=== PATIENT | female | born 1960 | race Caucasian/White ===

== ENCOUNTER 2016-12-03 19:57 | Inpatient (IN) | payer OTHER ==
--- NOTE | ~2016-12-03 | HP ---
History And Physical [facility] [address] [facility] [place]. [address] NAME: JOSE GUSMAN : 60 STATUS : ADM IN [facility]#: [id number] AGE: 56 ADM/REG DATE : 12/03/16 MR#: [id number] REPORT SERV DATE: 12/04/16 DICTATED BY: PAMELA ZIEGLER DATE: 12/03/16 REPORT STATUS : Draft TRANSCRIBED BY: MODZully DATE: 12/03/16 DATE OF ADMISSION: 12/03/2016 IDENTIFYING DATA: The patient is a 56-year-old woman with a history of Crohn disease and no significant previous cardiovascular history. CHIEF COMPLAINT: Substernal pressure-type pain with radiation to the neck for three days and with abrupt worsening at approximately 1400 hours yesterday. HISTORY OF PRESENT ILLNESS: Ms. Gusman is a 56-year-old woman with no previous cardiovascular history. She was in her usual state of health until approximately three days ago. The patient reports that she began to notice a substernal pressure-type chest pain. This was worsened with exertion, but would typically go away shortly after the patient sat down to rest. She did not seek immediate medical attention for this. The patient had the abrupt onset of the chest pain yesterday at 2 p.m. She reports that she had a severe substernal tightness with radiation to her neck. This was associated with shortness of breath. Again, the patient apparently did not seek immediate medical attention, but rather waited until late this evening to present. The patient reports she presented due to the unremitting nature of her symptoms. At this time, the patient continues to complain of a grade 3/10 tightness in her neck and shoulders. She is otherwise without specific complaints at this time. PAST MEDICAL HISTORY: Crohn disease. The patient denies any other significant past medical history. PAST SURGICAL HISTORY: The patient reports that she has had multiple previous abdominal surgeries for partial colectomies. She has had bilateral total hip replacements. She has had a meningioma removed from her foot. Surgical history is otherwise noncontributory. FAMILY HISTORY: The patient reports that her father of complications related to coronary artery bypass grafting surgery. There is no other significant family history of coronary heart disease or sudden cardiac . SOCIAL HISTORY: The patient denies tobacco, alcohol, or drug use. ALLERGIES: THE PATIENT HAS MULTIPLE DOCUMENTED ALLERGIES INCLUDING NSAIDS, PENICILLIN, SULFA, NEOMYCIN, BACITRACIN, POLYMYXIN B, AND REMICADE. HOME MEDICATIONS: 1. Acetaminophen 500 mg p.o. daily. 2. Diclofenac topical gel 1% daily as needed. 3. Nexium 40 mg p.o. daily. 4. Metronidazole 500 mg p.o. q.6 hours x7 days. 5. Multivitamin one tablet daily. 6. Ultram 50 to 100 mg daily as needed for back pain. 7. Neurontin - unknown dose. History And Physical [address] [address] NAME: JOSE GUSMAN : 60 STATUS : ADM IN PAT#: [id number] AGE: 56 ADM/REG DATE : 12/03/16 MR#: [id number] REPORT SERV DATE: 12/04/16 DICTATED BY: PAMELA ZIEGLER DATE: 12/03/16 REPORT STATUS : Draft TRANSCRIBED BY: BLAIR DATE: 12/03/16 8. Biofreeze gel - dose unknown. 9. Entyvio 300 mg injections one IV every [address] Smith. REVIEW OF SYSTEMS: An abbreviated review of systems was performed. This is noncontributory except for the pertinent positives and negatives noted in the history of present illness above. PHYSICAL EXAMINATION: VITAL SIGNS: Temperature is 98.2 degrees Fahrenheit, blood pressure is 98/53 mmHg, respirations 16, oxygen saturation is 98% on 2 L nasal cannula, heart rate is 82 beats per minute and regular. CONSTITUTIONAL: The patient is a chronically ill-appearing white woman, who is currently in no acute distress. EYES: PERRL, EOMI, clear conjunctiva. HEAD/MNT: NCAT with moist mucous membranes and grossly normal hard and soft palate. NECK: Supple with no obvious thyromegaly or lymphadenopathy. CARDIOVASCULAR: There is a regular rhythm with a normal S1 and a physiologically split second heart sound. No significant murmurs, rubs, or gallops are noted. The patient does have elevated jugular venous pressure which is estimated at 10 cm of water. PULMONARY: Clear to auscultation bilaterally, no wheezing, rales or rhonchi noted. No dullness to percussion. Nonlabored. ABDOMINAL: Soft, nontender, nondistended with multiple abdominal scars noted. No gross organomegaly is noted. EXTREMITIES: No clubbing, cyanosis or edema. MUSCULOSKELETAL: Grossly normal strength and range of motion in all extremities. INTEGUMENTARY: Skin appears intact with no bruises, wounds or active lesions noted. NEURO/PSYC: Alert and oriented x3, with no dysarthria, facial droop or lateralizing weakness noted. 12-LEAD EKG: The patient's 12-lead EKG shows normal sinus rhythm with Q-waves noted in II, III, and aVL. There is [address]-segment elevation noted in III and aVF with reciprocal changes noted in I and aVL. The changes do meet criteria for acute myocardial infarction, though the presence of Q-waves would indicate an evolving AK. LABORATORY DATA: Cell count show a white blood cell count of 9.6, hemoglobin 9.2, hematocrit 30, platelets 302. INR is 1.2. PTT is 29. Metabolic profile shows a sodium of 141, potassium 3.7, chloride is 107, CO2 of 27, BUN 8, creatinine is 0.84, glucose 101, calcium is 8.4, albumin is 2.9. AST is elevated at 128 with otherwise unremarkable liver function studies. Troponin I is elevated at 25.9. B-type natriuretic peptide is elevated at 329. Chest x-ray: Pending. ASSESSMENT AND PLAN: 1. Evolving inferior myocardial infarction: The patient is a late presentation. Her symptoms have been present for more than 24 hours at this time. However, given the ongoing complaints of chest pain and neck pain, I feel it is reasonable to proceed with emergent coronary angiography and PCI as indicated. Risks and benefits have been History And Physical [address] [place]. [address] NAME: JOSE GUSMAN : 60 STATUS : ADM IN PAT#: [id number] AGE: 56 ADM/REG DATE : 12/03/16 MR#: [id number] REPORT SERV DATE: 12/04/16 DICTATED BY: PAMELA ZIEGLER DATE: 12/03/16 REPORT STATUS : Draft TRANSCRIBED BY: MODZully DATE: 12/03/16 discussed with the patient. The patient has been started on aspirin and given a heparin bolus. We will start carvedilol if tolerated. We will start high-potency statin therapy. We will consider addition of an CARRINGTON inhibitor depending on the patient's left ventricular systolic function. The patient does have clinical evidence of heart failure including elevated B-type natriuretic peptide and elevated jugular venous pressure. This may indicate an RV involvement however. 2. Crohn disease: The patient will continue her home medication regimen at this time. We will consider a Gastroenterology consultation. PAPO/BLAIR Pamela Ziegler MD / [id number] CC: MD Alexander Alexandra M.D.
--- NOTE | ~2016-12-03 | DS ---
Discharge Summary [facility] [address] [place]. [address] NAME: JOSE ALMANZA : 60 STATUS : DIS IN PAT#: [id number] AGE: 56 ADM/REG DATE : 12/03/16 MR#: [id number] REPORT SERV DATE: 12/17/16 DICTATED BY: PAMELA ZIEGLER DATE: 12/16/16 REPORT STATUS : Draft TRANSCRIBED BY: BLAIR DATE: 12/16/16 Data Collection from hospitalization DISCHARGE DIAGNOSES: 1. Inferior ST-elevation myocardial infarction. 2. Coronary artery disease. 3. Crohn's disease. 4. Anemia. 5. Mitral regurgitation. 6. Neuropathy. 7. Rheumatoid arthritis. 8. Gastroesophageal reflux disease. CONSULTATIONS: Patricia Jennings NP PROCEDURES PERFORMED: Cardiac catheterization and percutaneous coronary intervention on 12/03/2016. MEDICATIONS: Tylenol 500 mg daily as needed, aspirin 81 mg daily, Lipitor 40 mg at bedtime, Coreg 3.125 mg twice a day, Voltaren 2-4 g topically daily as needed, Nexium 40 mg daily at 5:00 p.m., multivitamin one tablet daily, NitroQuick 0.4 mg sublingually as needed, Brilinta 90 mg twice a day, Ultram 50-100 mg daily at 5:00 p.m., Neurontin one tablet once daily, Biofreeze gel one application topically daily as needed, Entyvio one dose IV every 28 days as instructed. CONDITION AT DISCHARGE: Stable. DISPOSITION: The patient was discharged home with diet and activities as instructed. She would follow up with me one month following discharge. HOSPITAL COURSE: This is a 56-year-old female who has no previous cardiovascular history. She had been in her usual state of health until approximately three days prior to admission when she began to develop substernal pressure-type chest pain. This worsened with exertion, but would typically go away shortly after she sat down to rest. She did not seek immediate medical attention for this. She developed abrupt onset of chest pain on the day prior to this admission. She reported that she had severe substernal tightness with radiation to her neck. This was associated with shortness of breath. She again apparently did not seek immediate medical attention, but rather waited until late that evening to present. At the time of her presentation, she continued to complain of 3/10 tightness in her neck and shoulders. Her EKG was reviewed and she was found to have an evolving inferior myocardial infarction. She was admitted to the hospital at this time for further evaluation and treatment. Upon admission, it was felt that she would need to undergo emergent coronary angiography and percutaneous coronary intervention. She was taken to the cardiac labor mediator where she underwent the above-mentioned procedure. She tolerated this well, and there were no complications. The following day, an echocardiogram was performed. She had no further complaints of chest pain or shortness of breath. She did complain of diarrhea. She had Discharge Summary [facility] [address] [place]. [address] NAME: JOSE ALMANZA : 60 STATUS : DIS IN PAT#: [id number] AGE: 56 ADM/REG DATE : 12/03/16 MR#: [id number] REPORT SERV DATE: 12/17/16 DICTATED BY: PAMELA ZIEGLER DATE: 12/16/16 REPORT STATUS : Draft TRANSCRIBED BY: BLAIR DATE: 12/16/16 been started on metronidazole. Telemetry revealed normal sinus rhythm. Her echocardiogram had shown an ejection fraction of 45%-50%. Aspirin, Brilinta, Coreg, and atorvastatin were continued. Her metronidazole was stopped. She was transferred to the floor. She was seen by Patricia Jennings regarding diarrhea with her history of Crohn's disease. The patient does receive IV treatment by her title vehicle service attendant for Crohn's disease. Stool was sent for C. difficile. She was placed on a low-residue diet. On 12/05/2016, she remained on Flagyl for her toothache. She did have some loose stools. Stool was negative for C. difficile. Discharge planning was performed. DVT prophylaxis was started. On 12/06/2016, she was alert and cooperative. Imodium was continued. She said she was feeling better and had no further chest pain or shortness of breath. She was ambulatory. Discharge instructions were given. Due to her improved and stable condition, she was discharged home with the above- stated instructions. Information collected by: Kathie Lewis I submit the above information as my discharge summary. RICHARD/BLAIR Pamela Ziegler MD / [id number] CC: MD Alexander Alexandra M.D.
--- NOTE | ~2016-12-03 | CN ---
Consultation Report [facility] [address] [place]. [address] NAME: JOSE ALMANZA : 60 STATUS : ADM IN PAT#: [id number] AGE: 56 ADM/REG DATE : 12/03/16 MR#: [id number] REPORT SERV DATE: 12/05/16 DICTATED BY: PATRICIA JENNINGS DATE: 12/05/16 REPORT STATUS : Draft TRANSCRIBED BY: MODL DATE: 12/05/16 CONSULT NOTE DATE OF CONSULTATION: 12/04/2016 REASON FOR CONSULTATION: Diarrhea with history of Crohn's disease. HISTORY OF PRESENT ILLNESS: This is an awake, alert, and oriented pleasant 56-year-old female who was admitted on 12/03/[address] Ziegler for an IN with persistent chest and jaw pain. She underwent a cardiac cath on 12/03/2016 and is currently postop day #1. We have been asked to follow her for a complaint of diarrhea after every meal in the setting of a history of Crohn's disease. The patient reports that she originally reported to the dentist with a toothache and was placed on Flagyl. It was then confirmed that the toothache was actually an IN, and the Flagyl was continued during the patient's course of hospitalization here. Dr. Ziegler has now discontinued the Flagyl and asked the hospitalist to follow. The patient denies all other symptoms at this time including chest pain, palpitations, dyspnea, edema, bloody stools, headache, dizziness, and syncope. PAST MEDICAL HISTORY: Significant for: 1. Recent IN. 2. Crohn's disease. 3. Neuropathy. 4. Rheumatoid arthritis. 5. GERD. PAST SURGICAL HISTORY: Significant for: 1. Cardiac cath, 12/03/2016. 2. Right hip replacement, 2000 and 2011. 3. D and C, 03/2010. 4. Colon resection with appendectomy for Crohn's, most recent resection, 1999. 5. Tubal ligation in . 6. Left foot surgery with neuroma removed, 2011. 7. Colonoscopy, 06/2013. The patient's PCP is Dr. Alexander Bird. The patient follows with Dr. aGston, Gastroenterology. SOCIAL HISTORY: The patient denies tobacco, alcohol, and illicit drug use. FAMILY HISTORY: The patient's father of complications related to "heart problems and stroke." Mom is still alive with a history of hypertension. ALLERGIES: 1. NSAIDS. Consultation Report [address] [place]. [address] NAME: JOSE ALMANZA : 60 STATUS : ADM IN PAT#: [id number] AGE: 56 ADM/REG DATE : 12/03/16 MR#: [id number] REPORT SERV DATE: 12/05/16 DICTATED BY: PATRICIA JENNINGS DATE: 12/05/16 REPORT STATUS : Draft TRANSCRIBED BY: BLAIR DATE: 12/05/16 2. PENICILLIN. 3. SULFA. 4. NEOMYCIN. 5. BACITRACIN. 6. POLYMYXIN B. 7. REMICADE. HOME MEDICATIONS: Include: 1. Tylenol 500 mg p.o. daily p.r.n. 2. Voltaren 1% gel 2 to 4 g topically daily p.r.n. to affected areas. 3. Nexium 40 mg p.o. daily. 4. Multivitamin one tablet p.o. daily. 5. Ultram 50 mg one to two tablets tabs p.o. daily at 5 p.m. 6. Neurontin unknown strength one tablet p.o. daily at 5 p.m. Of note, pharmacy was unable to verify a prescription for this medication. 7. Biofreeze gel OTC one application topically p.r.n. to affected areas. 8. Entyvio 300 mg one dose IV every 28 days, administered by Dr. Gaston. REVIEW OF SYSTEMS: A complete 10-point review of systems was negative except as per HPI. PHYSICAL EXAMINATION: VITAL SIGNS: T 97.4, P 90, RR 18, BP 97/54, and SpO2 of 97% on room air. GENERAL: A well-appearing female in no acute distress. NEUROLOGIC: Awake, alert, and oriented x3 without focal deficit. HEENT: Normocephalic and atraumatic without lymphadenopathy. NECK: Supple. No JVD. LUNGS: CTA in all lung dawkins with normal respiratory effort. CV: Regular rate and rhythm. S1, S2 auscultated without murmur, rub, gallop, or click. ABDOMEN: Soft, round, and nontender. Bowel sounds active in all quadrants. No masses. EXTREMITIES: No cyanosis or edema. Cap refill within normal limits. PSYCHIATRIC: Normal affect. SKIN: Clean, dry, and intact with mucous membranes pink and moist. PERTINENT LABORATORY DATA: WBC of 6.3. Hemoglobin and hematocrit 8.3 and 26.0. BUN and creatinine 7 and 0.70. ASSESSMENT AND PLAN: 1. Diarrhea. This patient has a reported history of Crohn's disease and receives IV treatment per her physiological chemist for this. She was on Flagyl at home which was continued upon admission here and has now been discontinued. Our plan will be to stop the Flagyl. We will send the stool for C. diff, change to a low residue diet, and offer supportive care to include antidiarrheal medication. We will monitor her labs and adjust treatment as indicated. 2. Post cardiac cath for IN. Cardiac cath was completed on 12/03/2016. We will defer the Consultation Report [address] [place]. [address] NAME: JOSE ALMANZA : 60 STATUS : ADM IN [facility]#: [id number] AGE: 56 ADM/REG DATE : 12/03/16 MR#: [id number] REPORT SERV DATE: 12/05/16 DICTATED BY: PATRICIA JENNINGS DATE: 12/05/16 REPORT STATUS : Draft TRANSCRIBED BY: MODZully DATE: 12/05/16 management of this to the primary team. Thank you for this consult. We are pleased to follow this patient with you. This consult was completed through thorough review of [employer], old records, [employer], current chart, as well as thorough interview with the patient. [facility]/BLAIR Patricia Jennings NP / [id number] CC: Ben Ziegler MD
[~2016-12-03 19:57] MED LIST: ALKA SELZER PO; B121000P IM; BENTYL10 PO; CIMZIA SC; CIP5 PO; DEPO-PROVER150 MG/ML IM; ENDOCET1 TAB PO; ENTYVIO IV; FLORASTOR250 MG PO; FOLIC PO; HUMIRA PEN SC; LEVSIN; LEVSINTAB PO; LORTAB 5 PO; METHOTREXATE25 MG/ML SQ; MULTIVIT/MIN PO; NEUR100 PO; NEUR600 PO; NEURONTIN PO; NEXIUM40 PO; P10 PO; PEP20 PO; TUMSROLL PO; ULTRAM50 PO; VANCOCIN HCL125 MG PO/LIQ; VITAMIN D PO; VITAMIN D1000 UNI1 PO; X5 PO; ZOFRAN PO; ZOFRAN4 PO; [UNRECOGNIZED DRUG - OTHER]; [UNRECOGNIZED DRUG - OTHER] IV; [UNRECOGNIZED DRUG - OTHER] PO
[2016-12-03 22:02] LABS: BASOPHILS 0.1 %; BASOPHILS ABSOLUTE 0.01 10/3/uL (0.0-0.16); EOSINOPHILS 0 %; IMMATURE GRANULOCYTES 0.3 %; IMMATURE GRANULOCYTES ABSOLUTE 0.03 10/3/uL (0.0-0.11); LYMPHOCYTES ABSOLUTE 1.54 10/3/uL (0.67-4.30); MEAN CORPUSCULAR HEMOGLOB 26.5 pg (26.0-34.0); MEAN CORPUSCULAR VOLUME 85.3 fL (80-100); MEAN PLATELET VOLUME 9.3 fL (9.2-13.0); MONOCYTES 9.5 %; MONOCYTES ABSOLUTE 0.92 10/3/uL (0.21-1.20); NEUTROPHILS 74.1 %; NEUTROPHILS ABSOLUTE 7.14 10/3/uL (2.02-8.40); PLATELET COUNT 302 10/3/uL (150-400); RBC DISTRIBUTION WIDTH 14.8 % (12.0-16.0)
[2016-12-03 22:04] LABS: ER CBC TAT 0 Hrs 11 Mins; HEMATOCRIT 29.6 % (36.0-48.0); HEMOGLOBIN 9.2 g/dL (12.0-16.0); MANUAL DIFF NO %; MEAN CORPUS HGB CONC 31.1 g/dL (32.0-36.0); RED CELL COUNT 3.47 10/6/uL (4.0-5.6); WHITE BLOOD CELLS 9.6 10/3/uL (4.5-10.5)
[2016-12-03 22:09] LABS: INTERNATIONAL NORMAL RATI 1.2 UNITS (-); PARTIAL THROMBO TIME 29.2 SEC (22.5-37.2); PROTIME (NOT ORD) 15.1 SEC (12.0-14.5)
[2016-12-03 22:17] LABS: A/G RATIO 0.7 (0.7-1.9); ALBUMIN 2.9 G/DL (3.5-5.0); ALKALINE PHOSPHATASE 71 U/L (45-117); CALCIUM, SERUM 8.4 MG/DL (8.5-10.4); CHLORIDE, SERUM 107 MMOL/L (96-112); CREATININE 0.84 MG/DL (0.55-1.02); GFR AFRICAN AMERICAN 90 ML/MIN (>=60); GFR NON AFRICAN AMERICAN 78 ML/MIN (>=60); GLOBULIN 4.3 G/DL (2.5-4.1); GLUCOSE, SERUM 101 MG/DL (60-99); POTASSIUM, SERUM 3.7 MMOL/L (3.5-5.3); SGOT(AST) 128 U/L (5-40); SGPT(ALT) 32 U/L (5-65); SODIUM, SERUM 141 MMOL/L (135-148); TOTAL BILIRUBIN 0.7 MG/DL (0-1.2); TOTAL PROTEIN 7.2 G/DL (6.0-8.5)
[2016-12-03 22:18] LABS: BUN (BLOOD UREA NITROGEN) 8 MG/DL (6-23); CO2 (CARBON DIOXIDE) 27 MMOL/L (24-34)
[2016-12-03 22:19] LABS: CALCIUM, SERUM 8.6 MG/DL (8.5-10.4); CHEST PAIN PROFILE TAT 0 Hrs 26 Mins; CHLORIDE, SERUM 108 MMOL/L (96-112); CREATININE 0.86 MG/DL (0.55-1.02); GFR AFRICAN AMERICAN 88 ML/MIN (>=60); GFR NON AFRICAN AMERICAN 76 ML/MIN (>=60); GLUCOSE, SERUM 102 MG/DL (60-99); POTASSIUM, SERUM 3.7 MMOL/L (3.5-5.3); SODIUM, SERUM 142 MMOL/L (135-148)
[2016-12-03] MEDS ORDERED: ENTYVIO300 MG IV (22:20)
[2016-12-03] MEDS ORDERED: NEUR600 PO (22:21)
[2016-12-03] MEDS ORDERED: ULTRAM50 PO (22:22)
[2016-12-03] MEDS ORDERED: NEXIUM40 PO (22:22)
[2016-12-03] MEDS ORDERED: FLAG500TAB PO (22:23)
[2016-12-03] MEDS ORDERED: MULTIVIT/MIN PO (22:23)
[2016-12-03] MEDS ORDERED: VOLTAREN1 % TOP (22:24)
[2016-12-03] MEDS ORDERED: BIOFREEZE TOP (22:24)
[2016-12-03 22:25] LABS: BUN (BLOOD UREA NITROGEN) 8 MG/DL (6-23); CO2 (CARBON DIOXIDE) 27 MMOL/L (24-34)
[2016-12-03] MEDS ORDERED: ACET500CAP PO (22:25)
[2016-12-04 02:03] LABS: CK-MB 27.5 NG/ML
[2016-12-04 02:15] LABS: CPK 598 U/L (0-200)
[2016-12-04 02:17] LABS: CKMB INDEX (NOT ORD) 4.6
[2016-12-04 06:05] LABS: BASOPHILS 0 %; EOSINOPHILS 0 %; HEMOGLOBIN 8.3 g/dL (12.0-16.0); IMMATURE GRANULOCYTES 0.2 %; IMMATURE GRANULOCYTES ABSOLUTE 0.01 10/3/uL (0.0-0.11); LYMPHOCYTES ABSOLUTE 1.33 10/3/uL (0.67-4.30); MEAN CORPUS HGB CONC 31.9 g/dL (32.0-36.0); MEAN CORPUSCULAR HEMOGLOB 27.2 pg (26.0-34.0); MEAN CORPUSCULAR VOLUME 85.2 fL (80-100); MEAN PLATELET VOLUME 9.1 fL (9.2-13.0); MONOCYTES 9.7 %; MONOCYTES ABSOLUTE 0.61 10/3/uL (0.21-1.20); NEUTROPHILS 69.1 %; NEUTROPHILS ABSOLUTE 4.37 10/3/uL (2.02-8.40); PLATELET COUNT 235 10/3/uL (150-400); RBC DISTRIBUTION WIDTH 14.8 % (12.0-16.0); RED CELL COUNT 3.05 10/6/uL (4.0-5.6); WHITE BLOOD CELLS 6.3 10/3/uL (4.5-10.5)
[2016-12-04 06:06] LABS: MANUAL DIFF NO %
[2016-12-04 06:21] LABS: BUN (BLOOD UREA NITROGEN) 7 MG/DL (6-23); CALCIUM, SERUM 7.7 MG/DL (8.5-10.4); CHLORIDE, SERUM 111 MMOL/L (96-112); CHOL/HDL RATIO(NOT ORDER) 2.9 (0-5); CHOLESTEROL 95 MG/DL (< 200); CO2 (CARBON DIOXIDE) 25 MMOL/L (24-34); GFR AFRICAN AMERICAN 112 ML/MIN (>=60); GFR NON AFRICAN AMERICAN 97 ML/MIN (>=60); GLUCOSE, SERUM 92 MG/DL (60-99); HDL CHOLESTEROL 33 MG/DL (> 49); LDL CHOLESTEROL 35 MG/DL (< 130); NON-HDL CHOLESTEROL 62 MG/DL (< 160); POTASSIUM, SERUM 3.4 MMOL/L (3.5-5.3); SODIUM, SERUM 144 MMOL/L (135-148); TRIGLYCERIDE 137 MG/DL (< 150)
[2016-12-04 13:40] LABS: CK-MB 16.8 NG/ML
[2016-12-04 13:43] LABS: CKMB INDEX (NOT ORD) 3.9; TROPONIN I 26.3 NG/ML (<0.05)
[2016-12-04 23:54] LABS: CK-MB 7.7 NG/ML
[2016-12-04 23:55] LABS: CKMB INDEX (NOT ORD) 3.2
[2016-12-05 04:35] LABS: BASOPHILS 0.3 %; BASOPHILS ABSOLUTE 0.02 10/3/uL (0.0-0.16); EOSINOPHILS 0.7 %; EOSINOPHILS ABSOLUTE 0.04 10/3/uL (0.0-0.53); HEMATOCRIT 26.7 % (36.0-48.0); HEMOGLOBIN 8.7 g/dL (12.0-16.0); IMMATURE GRANULOCYTES 0.5 %; IMMATURE GRANULOCYTES ABSOLUTE 0.03 10/3/uL (0.0-0.11); LYMPHOCYTES 29.6 %; LYMPHOCYTES ABSOLUTE 1.76 10/3/uL (0.67-4.30); MEAN CORPUS HGB CONC 32.6 g/dL (32.0-36.0); MEAN CORPUSCULAR HEMOGLOB 27.4 pg (26.0-34.0); MEAN CORPUSCULAR VOLUME 84.2 fL (80-100); MEAN PLATELET VOLUME 9.1 fL (9.2-13.0); MONOCYTES 8.1 %; MONOCYTES ABSOLUTE 0.48 10/3/uL (0.21-1.20); NEUTROPHILS 60.8 %; NEUTROPHILS ABSOLUTE 3.61 10/3/uL (2.02-8.40); PLATELET COUNT 282 10/3/uL (150-400); RBC DISTRIBUTION WIDTH 14.9 % (12.0-16.0); RED CELL COUNT 3.17 10/6/uL (4.0-5.6); WHITE BLOOD CELLS 5.9 10/3/uL (4.5-10.5)
[2016-12-05 04:42] LABS: BUN (BLOOD UREA NITROGEN) 12 MG/DL (6-23); CALCIUM, SERUM 7.9 MG/DL (8.5-10.4); CHLORIDE, SERUM 112 MMOL/L (96-112); CO2 (CARBON DIOXIDE) 24 MMOL/L (24-34); CREATININE 0.82 MG/DL (0.55-1.02); GFR AFRICAN AMERICAN 93 ML/MIN (>=60); GFR NON AFRICAN AMERICAN 80 ML/MIN (>=60); GLUCOSE, SERUM 96 MG/DL (60-99); POTASSIUM, SERUM 3.6 MMOL/L (3.5-5.3); SODIUM, SERUM 142 MMOL/L (135-148)
[2016-12-05 04:43] LABS: MANUAL DIFF NO %
[2016-12-05 13:42] LABS: CK-MB 4.2 NG/ML; CPK 161 U/L (0-200)
[2016-12-05 19:28] LABS: CK-MB 3.2 NG/ML; CPK 161 U/L (0-200)
[2016-12-06 05:39] LABS: BASOPHILS 0.2 %; BASOPHILS ABSOLUTE 0.01 10/3/uL (0.0-0.16); EOSINOPHILS 1.3 %; EOSINOPHILS ABSOLUTE 0.07 10/3/uL (0.0-0.53); HEMOGLOBIN 9.4 g/dL (12.0-16.0); IMMATURE GRANULOCYTES 0.6 %; IMMATURE GRANULOCYTES ABSOLUTE 0.03 10/3/uL (0.0-0.11); LYMPHOCYTES 22.4 %; LYMPHOCYTES ABSOLUTE 1.19 10/3/uL (0.67-4.30); MEAN CORPUS HGB CONC 31.2 g/dL (32.0-36.0); MEAN CORPUSCULAR HEMOGLOB 26.5 pg (26.0-34.0); MEAN CORPUSCULAR VOLUME 84.8 fL (80-100); MEAN PLATELET VOLUME 8.9 fL (9.2-13.0); MONOCYTES ABSOLUTE 0.48 10/3/uL (0.21-1.20); NEUTROPHILS 66.5 %; NEUTROPHILS ABSOLUTE 3.54 10/3/uL (2.02-8.40); PLATELET COUNT 304 10/3/uL (150-400); RBC DISTRIBUTION WIDTH 14.8 % (12.0-16.0); RED CELL COUNT 3.55 10/6/uL (4.0-5.6); WHITE BLOOD CELLS 5.3 10/3/uL (4.5-10.5)
[2016-12-06 05:41] LABS: HEMATOCRIT 30.1 % (36.0-48.0); MANUAL DIFF NO %
[2016-12-06] MEDS ORDERED: ASAB PO (11:36)
[2016-12-06] MEDS ORDERED: LIPITOR40 PO (11:36)
[2016-12-06] MEDS ORDERED: COREG3 PO (11:37)
[2016-12-06] MEDS ORDERED: BRILINTA90 MG PO (11:39)
[2016-12-06] MEDS ORDERED: NITROQUICK0.4 MG SL (11:42)
== END 2016-12-06 14:02 | disposition home or self-care (01) | DRG 247 ==
LOC: ER 19:57 → SSU2 22:50 → CCU 12-04 01:09 → 5NO 12-04 18:37
PROVIDERS: Emergency Medicine; Internal Medicine Cardiovascular Disease
PROC: 027034Z Dilation of Coronary Artery, One Artery with Drug-eluting Intraluminal Device, Percutaneous Approach (ICD-10-PCS; principal; 2016-12-03)
PROC: 4A023N7 Measurement of Cardiac Sampling and Pressure, Left Heart, Percutaneous Approach (ICD-10-PCS; 2016-12-03)
PROC: B2151ZZ Fluoroscopy of Left Heart using Low Osmolar Contrast (ICD-10-PCS; 2016-12-03)
PROC: B2111ZZ Fluoroscopy of Multiple Coronary Arteries using Low Osmolar Contrast (ICD-10-PCS; 2016-12-03)
DX: I21.19 ST elevation (STEMI) myocardial infarction involving other coronary artery of inferior wall (principal); I50.9 Heart failure, unspecified; K50.90 Crohn's disease, unspecified, without complications; I25.10 Atherosclerotic heart disease of native coronary artery without angina pectoris; Z95.1 Presence of aortocoronary bypass graft; Z88.0 Allergy status to penicillin; Z88.1 Allergy status to other antibiotic agents; Z88.2 Allergy status to sulfonamides; Z88.8 Allergy status to other drugs, medicaments and biological substances; D64.9 Anemia, unspecified; M06.9 Rheumatoid arthritis, unspecified; Z96.641 Presence of right artificial hip joint
CPT/HCPCS: 71010; 80048; 80053; 80061; 82550; 82553; 83735; 83880; 84484; 85025; 85347; 85610; 85730; 87493; 87493-59; 87641; 93005; 93458; 99152; 99153; 99291; A9270-GY; C1725; C1769; C1874; C1887; C1894; C8929; C9600; C9606; J0583; J1652; J2250; J3010; Q9957; Q9967

== ENCOUNTER 2016-12-14 15:24 | Observation (INO) | payer OTHER ==
--- NOTE | ~2016-12-14 | HP ---
History And Physical [place] [id number] [facility] [place]. [address] NAME: JOSE ALMANZA : 60 STATUS : ADM Jose PAT#: [id number] AGE: 56 ADM/REG DATE : 12/14/16 MR#: [id number] REPORT SERV DATE: 12/15/16 DICTATED BY: DEVORA CHERY DATE: 12/15/16 REPORT STATUS : Draft TRANSCRIBED BY: MODL DATE: 12/15/16 DATE OF ADMISSION: 12/14/2016 DIRECTOR ENTERPRISE DATA ARCHITECTURE: Ben Ziegler MD. GI PHYSICIAN: Dr. Jose Angel Gaston. CHIEF COMPLAINT: Chest pain, fatigue, and left arm pain. HISTORY OF PRESENT ILLNESS: A very pleasant 56-year-old, white female who was recently at [facility] for inferior wall CO on 12/03/2016, receiving one JOSE to mid RCA and one JOSE to left circumflex. At that time, with identified 60% mid LAD lesion and a small target vessel. The patient has been home, since reports episodic chest pain since her CO. She saw her GI doctor, Dr. Gaston yesterday, who recommended that she go to the emergency room for further evaluation and treatment secondary to some lab work performed in his office and her description of ongoing symptoms. At its most intense, she rates her chest pain as 7/10. At the time of interview in the CPOU, she rates it as 3/10. She states, it has been on and off since 12/10/2016. She reports that she has not used any of her nitroglycerin because she describes her chest pain as a heaviness and it was not "pain" as instructed. She also reports some claudication like signs and symptoms in her lower extremities and foot, worse with exertion. The patient confirms one heart attack on 11/2016 with status post PCI. Denies history of stroke, DVT, or pulmonary embolus. The patient denies any recent fever or chills, no palpitations, no syncopal episodes. Denies PND or orthopnea. PAST MEDICAL HISTORY: 1. CAD:. a. Late presentation IWMI, 12/15/2016 with JOSE to mid RCA and JOSE to mid circumflex with 60% mid LAD, small target vessel. 2. Dyslipidemia. 3. Hypertension. 4. Denies diabetes. 5. Crohn' disease, followed by Dr. Gaston. 6. Neuropathy. 7. Remote tobacco use. 8. Positive family history for early CAD. PAST SURGICAL HISTORY: 1. Right hip replacement twice. 2. Colon resection secondary to Crohn's. 3. Left neuroma removed. SOCIAL HISTORY: She is with one child. Disabled. Does not exercise. Quit smoking in 1997, but prior to that was social smoker. Denies alcohol or illicits. History And Physical [address] [place]. [address] NAME: JOSE ALMANZA : 60 STATUS : ADM Jose PAT#: [id number] AGE: 56 ADM/REG DATE : 12/14/16 MR#: [id number] REPORT SERV DATE: 12/15/16 DICTATED BY: DEVORA CHERY DATE: 12/15/16 REPORT STATUS : Draft TRANSCRIBED BY: BLAIR DATE: 12/15/16 FAMILY HISTORY: Father with heart attack or multiple heart attacks, at the age of 61. REVIEW OF SYSTEMS: A 14-point review of systems performed, significant for HPI including home systolic blood pressures of 102 to 105, otherwise complete review of systems obtained and negative. ALLERGIES: PLEASE REVIEW ALLERGY LIST, NSAIDS, TOLD TO OVOID PENICILLIN, FACIAL SWELLING. SULFA, KNOTS ON LEGS. NEOMYCIN, REDNESS, INFECTION. BACITRACIN, REDNESS, INFECTION. INFLIXIMAB, ANAPHYLAXIS. HOME MEDICATIONS: Tylenol p.r.n., aspirin 81 mg daily, Lipitor 40 mg nightly, carvedilol 3.125 twice daily, diclofenac gel p.r.n., Nexium 40 mg daily, gabapentin 600 mg nightly, multivitamin daily, nitroglycerin p.r.n., Brilinta 90 mg twice daily, Ultram 50 to 100 daily, Biofreeze gel p.r.n., Entyvio injection monthly. PHYSICAL EXAMINATION: VITAL SIGNS: Bilateral blood pressures on arrival, right 111/56, left 110/55, this morning 104/67. Pulse 79, respirations 18, temperature 98.1, O2 saturation 98% on room air. Height is 4 feet 11 inches, weight 121 pounds. BMI 24.5. GENERAL: Cooperative, in no apparent distress. HEENT: Pupils 2 mm, sclera nonicteric. Nares patent. Moist mucous membranes. No xanthelasma. NECK: Trachea midline, no thyromegaly. No JVD. No bruits. CHEST: Tender to palpation of the left chest. LYMPH: No cervical lymphadenopathy. No supraclavicular lymphadenopathy. RESPIRATORY: Unlabored respirations. Breath sounds clear bilaterally to posterior auscultation. No wheezes or rhonchi. CARDIOVASCULAR: Regular rate. No murmur, rub or gallop appreciated. EXTREMITIES: Without edema. Pulses 2+ bilaterally. ABDOMEN: Soft, nontender, nondistended, normal bowel sounds auscultated throughout. No organomegaly. SKIN: Warm, dry extremities. No pallor, or cyanosis. PSYCHIATRIC: Appropriate affect. Alert, oriented x3. LABORATORY DATA: Troponin 0.18, 0.16, and 0.17. Potassium 4.6, BUN 11, creatinine 0.91, glucose 117, magnesium 2.5. WBC 4.7, hemoglobin 10.6, hematocrit 34.6, platelet count 322,000. EKG, sinus rhythm, inferior Q-waves, PRWP. Echo, 12/04/2016: EF 45% to 50%. Posterior lateral wall HK. [id number] MR. Moderate LV diastolic dysfunction. PCI, 12/03/2016 (Dr. Ziegler): JOSE to mid RCA and JOSE to mid left circumflex with 60% mid LAD lesion, small target vessel. ASSESSMENT AND PLAN: 1. Chest pain and left arm pain ongoing since this past , n.p.o. for now. We will discuss all with rounding physician whether need for repeat cath versus cardiac History And Physical [address] [address] NAME: JOSE ALMANZA : 60 STATUS : ADM Jose PAT#: [id number] AGE: 56 ADM/REG DATE : 12/14/16 MR#: [id number] REPORT SERV DATE: 12/15/16 DICTATED BY: DEVORA CHERY DATE: 12/15/16 REPORT STATUS : Draft TRANSCRIBED BY: BLAIR DATE: 12/15/16 testing. Troponins have been flap, but with ongoing chest pain. 2. Coronary artery disease. Continue home medications. The patient has been educated on use of nitroglycerin for her anginal equivalent which is seemingly chest heaviness. 3. Dyslipidemia. Continue statin. 4. Gastroesophageal reflux disease. Continue PPI. 5. Fatigue. Check a TSH. 6. Questionable claudication symptoms. Follow up with Dr. Ziegler as scheduled. All studies can be done on an outpatient basis as warranted. BONNIE/MODL Devora Chery, MSN, TECHNICAL SERVICES ASSISTANT-BC / [id number] CC: LEON Sosa, TECHNICAL SERVICES ASSISTANT-BC Alexander Bird M.D. Ben Ziegler MD
[~2016-12-14 15:24] MED LIST changes: +ACET500CAP PO; +ASAB PO; +BIOFREEZE TOP; +BRILINTA90 MG PO; +COREG3 PO; +ENTYVIO300 MG IV; +FLAG500TAB PO; +LIPITOR40 PO; +NITROQUICK0.4 MG SL; +VOLTAREN1 % TOP
[2016-12-14 16:40] LABS: BASOPHILS 0.4 %; BASOPHILS ABSOLUTE 0.02 10/3/uL (0.0-0.16); EOSINOPHILS 5.1 %; EOSINOPHILS ABSOLUTE 0.24 10/3/uL (0.0-0.53); ER CBC TAT 0 Hrs 08 Mins; HEMOGLOBIN 10.6 g/dL (12.0-16.0); IMMATURE GRANULOCYTES 0.6 %; IMMATURE GRANULOCYTES ABSOLUTE 0.03 10/3/uL (0.0-0.11); LYMPHOCYTES 27.5 %; MEAN CORPUS HGB CONC 30.6 g/dL (32.0-36.0); MEAN CORPUSCULAR HEMOGLOB 26.2 pg (26.0-34.0); MEAN CORPUSCULAR VOLUME 85.4 fL (80-100); MEAN PLATELET VOLUME 9.6 fL (9.2-13.0); MONOCYTES 6.1 %; MONOCYTES ABSOLUTE 0.29 10/3/uL (0.21-1.20); NEUTROPHILS 60.3 %; NEUTROPHILS ABSOLUTE 2.84 10/3/uL (2.02-8.40); PLATELET COUNT 322 10/3/uL (150-400); RBC DISTRIBUTION WIDTH 15.1 % (12.0-16.0); RED CELL COUNT 4.05 10/6/uL (4.0-5.6); WHITE BLOOD CELLS 4.7 10/3/uL (4.5-10.5)
[2016-12-14 16:43] LABS: HEMATOCRIT 34.6 % (36.0-48.0); MANUAL DIFF NO %
[2016-12-14 16:51] LABS: INTERNATIONAL NORMAL RATI 1.1 UNITS (-); PARTIAL THROMBO TIME 29.8 SEC (22.5-37.2)
[2016-12-14 16:53] LABS: BUN (BLOOD UREA NITROGEN) 11 MG/DL (6-23); CHLORIDE, SERUM 108 MMOL/L (96-112); CREATININE 0.91 MG/DL (0.55-1.02); GFR AFRICAN AMERICAN 82 ML/MIN (>=60); GFR NON AFRICAN AMERICAN 71 ML/MIN (>=60); POTASSIUM, SERUM 3.8 MMOL/L (3.5-5.3); SODIUM, SERUM 142 MMOL/L (135-148)
[2016-12-14 16:54] LABS: CALCIUM, SERUM 8.9 MG/DL (8.5-10.4); CHEST PAIN PROFILE TAT 0 Hrs 22 Mins; CO2 (CARBON DIOXIDE) 30 MMOL/L (24-34); GLUCOSE, SERUM 117 MG/DL (60-99); TROPONIN I 0.18 NG/ML (<0.05)
== END 2016-12-15 17:07 | disposition home or self-care (01) ==
LOC: ER 15:24 → CDU1 19:01
PROVIDERS: Emergency Medicine
DX: R07.9 Chest pain, unspecified (principal); I25.2 Old myocardial infarction; I25.10 Atherosclerotic heart disease of native coronary artery without angina pectoris; I10 Essential (primary) hypertension; E78.5 Hyperlipidemia, unspecified; K50.90 Crohn's disease, unspecified, without complications; G62.9 Polyneuropathy, unspecified; K21.9 Gastro-esophageal reflux disease without esophagitis; M79.602 Pain in left arm; Z98.890 Other specified postprocedural states; Z87.891 Personal history of nicotine dependence; Z88.0 Allergy status to penicillin; Z88.2 Allergy status to sulfonamides; Z88.8 Allergy status to other drugs, medicaments and biological substances; Z79.82 Long term (current) use of aspirin; Z79.899 Other long term (current) drug therapy
CPT/HCPCS: 71020; 78452; 80048; 83735; 84132; 84484; 85025; 85610; 85730; 93005; 93017; 96374; 96376; 99285; A9270-GY; A9502; G0378; J0153; J0280